=== PATIENT | female | born 1980 | race Caucasian/White ===

== ENCOUNTER → 2025-03-24 11:33 | Outpatient (REF) | payer OTHER, SELFPAY | LOC: HWRAD 11:33 | PROVIDERS: ATTENDING PHYSICIAN Nurse Practitioner | DX: S06.0X0A Concussion without loss of consciousness, initial encounter (principal) | CPT/HCPCS: 70450 ==

== ENCOUNTER → 2025-04-26 10:03 | Outpatient (REF) | payer OTHER, SELFPAY | LOC: WDC 10:03 | PROVIDERS: ATTENDING PHYSICIAN Nurse Practitioner | DX: N63.21 Unspecified lump in the left breast, upper outer quadrant (principal) | CPT/HCPCS: 76642; 77062; 77066 ==

== ENCOUNTER → 2025-04-30 07:28 | Outpatient (REF) | payer OTHER, SELFPAY ==
--- NOTE | 2025-04-30 08:30 | OID.BR.INTR ---
BRIGITTED Breast Navigator - Initial
- -
Date of Contact: 04/30/25
Met with patient. Patient given written information on navigator service available at [facility]. Will follow up as needed per protocol.
== END ==
LOC: WDC 07:28
PROVIDERS: ATTENDING PHYSICIAN Nurse Practitioner
DX: N63.20 Unspecified lump in the left breast, unspecified quadrant (principal)
CPT/HCPCS: 19083; 19084; 88305; A4648

== ENCOUNTER → 2025-05-07 09:51 | Outpatient (REF) | payer OTHER, SELFPAY ==
[2025-05-07 11:03] LABS: HCG, Serum Qualitative Screen Negative
== END ==
LOC: REG 09:51
PROVIDERS: ATTENDING PHYSICIAN Surgery
DX: C50.412 Malignant neoplasm of upper-outer quadrant of left female breast (principal); C50.919 Malignant neoplasm of unspecified site of unspecified female breast; Z17.1 Estrogen receptor negative status [ER-]; Z17.22 Progesterone receptor negative status; Z01.812 Encounter for preprocedural laboratory examination
CPT/HCPCS: 36415; 84703